=== PATIENT | female | born 1980 | race Native Hawaiian/Other Pacific Islander ===

== ENCOUNTER 2021-06-22 08:01 | Outpatient (CLI) | payer BC | END 2021-06-22 18:53 | disposition home or self-care (01) | LOC: RAD 08:01 | PROVIDERS: ATTEND Internal Medicine | DX: M54.2 Cervicalgia (principal); M25.552 Pain in left hip; M25.511 Pain in right shoulder ==

== ENCOUNTER 2021-07-01 14:00 | Outpatient (CLI) | payer BC | END 2021-07-01 18:54 | disposition home or self-care (01) | LOC: MRI 14:00 | PROVIDERS: ATTEND Internal Medicine | DX: M54.2 Cervicalgia (principal); M25.511 Pain in right shoulder ==

== ENCOUNTER 2022-09-28 08:08 | Outpatient (CLI) | payer BC | END 2022-09-28 20:22 | disposition home or self-care (01) | LOC: MAMMO 08:08 | PROVIDERS: ATTEND Nurse Practitioner Family | DX: Z12.31 Encounter for screening mammogram for malignant neoplasm of breast (principal) ==